=== PATIENT | female | born 1970 | race African-American/Black ===

== ENCOUNTER → 2024-11-21 | Day surgery (SDC) | payer BC ==
[~2024-11-21] MED LIST: FENTANYL CITR 100 MCG/2 ML ONE; GLYCOPYRROLATE 0.2 MG/ML SYR ONE; LIDOCAINE 2% MPF 5 ML VIAL ONE; MIDAZOLAM HCL 2 MG/2 ML INJ ONE; NEOSTIGMINE 1 MG/ML -10 ML VIAL ONE; ONDANSETRON 4 MG/2 ML VIAL ONE; ROCURONIUM 50 MG/5 ML VIAL IV ONE; Ringers Lactate 0 ML IV ONE; propofoL 200 MG/20 ML VIAL IV ONE
[2024-11-21 08:31] LABS: Absolute Eosinophils 0.2 K/uL (0-0.5); Absolute Lymphocytes (CBC) 1.3 K/uL (0.7-4.9); Absolute Monocytes 0.4 K/uL (0.1-1.3); Absolute Neutrophil 2.5 K/uL (1.8-8.0); Basophils % 1.1 % (0-1.3); Eosinophils % 4.1 % (0-4.4); Hematocrit 44.7 % (36.0-45.0); Hemoglobin 14.2 g/dL (12.0-15.0); Lymphocytes % 29.1 % (15.3-44.8); MCHC 31.8 g/dL (32.0-36.0); MCV 100.6 fL (80-100); MPV 8.2 fL (7.6-11.3); Monocytes % 9.6 % (3.3-12.3); Neutrophils % 56.1 % (41.7-73.7); Nucleated Red Blood Cells % 0.2 % (0-0); Platelets 199 thou/uL (152-406); RBC Red Blood Cell Count 4.44 M/uL (3.86-4.86); Red Cell Distribution Width 16.5 % (12.1-15.2)
[2024-11-21 09:18] LABS: Anion Gap 9.2 mEq/L (5.0-15.0); Potassium 4.2 mEq/L (3.5-5.1)
--- NOTE | 2024-11-21 10:41 | EKG ---
Test Date: 2024-11-21 Test Time: 08:15:28 Dietary Aide: REBEKAH MEASUREMENT RESULTS: Intervals: Rate: 57 SD: 168 QRSD: 80 QT: 442 QTc: 430 [place]: P: 69 SD: 168 QRS: 31 T: 72 INTERPRETIVE STATEMENTS: Sinus bradycardia Septal infarct, age undetermined Abnormal ECG No previous ECG available for comparison Electronically Signed On 11-21-24 10:40:30 CDT by Lewis Kaiser
[2024-11-21] MEDS: NA CHLORIDE 0.9% 500 ML ONE (11:05)
[2024-11-21] MEDS: HEPARIN 500 UNIT/5 ML SYR IV ONE (11:31)
[2024-11-21] MEDS: LIDOCAINE HCL/EPINEPHRINE 20 ML MDV ONE (11:32)
[2024-11-21] MEDS: CEFAZOLIN SODIUM 2 GM/VIAL ONE (11:34)
--- NOTE | 2024-11-21 12:40 | P.OP ---
Preoperative diagnosis: End Stage Renal Disease Postoperative diagnosis: End Stage Renal Disease Primary procedure: Laparoscopic Placement of Peritoneal Dialysis Catheter Anesthesia: GETA + Local Estimated blood loss: <5cc Specimen: None Findings: Cath in Pelvis, lower LEFT pelvic exit Complications: None Drain(s): Other (Nunes Double Cuff Peritoneal Dialysis Catheter) Transferred to: Recovery Room Condition: Good
[2024-11-21 13:03] VITALS: O2SAT 100
--- NOTE | 2024-11-21 13:34 | OP ---
Date of Procedure: 11/21/2024 Surgeon: Sheng Madden MD, Preoperative Diagnosis: End-stage renal disease. Postoperative Diagnosis: End-stage renal disease. Procedure Performed: Laparoscopic placement of peritoneal dialysis catheter. Anesthesia: General endotracheal plus local with 1% lidocaine with epinephrine. Estimated Blood Loss: Less than 5 cc. Specimens: None. Findings: Catheter was located deep in the pelvis and there was a left lower quadrant exit of the ca theter. Complications: None. Implants: Merit double-cuffed peritoneal dialysis catheter. Disposition: The patient was transferred to recovery room in good condition. Procedure In Detail: After informed consent was obtained, the patient was brought to the operating r oom, prepped and draped in the usual sterile fashion. After adequate anesthesia achieved, I anesthet ized an area in the left upper quadrant down to subcutaneous tissues. A 5 mm 0-degree optical trocar was introduced into the abdomen without incident or complication. Insufflation was obtained to 15 m mHg at this time. There was no injury to vital structures upon entry into the abdomen. Additional t rocar was placed in the left mid abdomen. This was similarly anesthetized and sharply incised and 5 mm trocar was placed under direct vision without incident or complication. The patient had pre-stent sling with Merit double-cuffed peritoneal dialysis catheter template placed in the preoperative phas e. At this point, I followed the pre-markings to anesthetize the left lower abdominal wall anterior to the rectus muscle. At this point, the incision was made. I then placed the introducer sheath aim ing it toward the patient's coccyx. I then dilated up the tract using the preset dilator and introdu tawana the catheter with the medial curve into the pelvis bearing the first cuff into the rectus sheath. At this point, following premarked area at the patient's request, the left lower quadrant exit was determined at this point. I had this pre-stenciled and followed the tract using the tunneling device following a counter incision in left lower quadrant. This was brought out while keeping the camera to observe. There was no peritoneal injury or violation of peritoneal cavity. During the placement of the tunneling device, passes through the skin were made at this point. Air was immediately emanat ing. A clamp was placed at this point and a second clamp was placed at the appropriate premarked loc ation. So both cups were in good anatomic position. At this point, I flushed the catheter, which re mained deep in the pelvis. The patient remained in neutral position. At this point, effluent was co jennifer out quite easily and under no pressure. In the neutral position, the effluent came immediately out without issue. At this point, I placed the cap on the end of the catheter and heparinized the ca theter track and a cap was placed at this point. The abdomen was then desufflated under direct visio n without incident or complication. All remaining trocars were removed. All skin edges were then co piously irrigated and closed with a 4-0 Monocryl in a running fashion. Dermabond placed over top. T he patient tolerated the procedure well without incident or complication and transferred to PACU in g ood condition. All counts were correct at the end of the case. LUCIA/PAULINO Voice ID: [id number] Report ID: [id number]
[2024-11-21] MEDS: HYDROCODONE/APAP 5/325 MG TAB PO ONE (13:40)
[2024-11-21 14:12] VITALS: BP 141/80; TEMP 97.5
== END | disposition home or self-care (01) ==
LOC: OR 10:25
PROVIDERS: ATTEND Surgery
PROC: 0WHG43Z Insertion of Infusion Device into Peritoneal Cavity, Percutaneous Endoscopic Approach (ICD-10-PCS; principal; 2024-11-21 11:45)
DX: N18.6 End stage renal disease (principal)
CPT/HCPCS: 93005; 85025; 80048; 36415; 49324; J2704; J2710; J2003; J2250; J3010; J1642; J2405; J7040; J7120